=== PATIENT | female | born 1975 | race Caucasian/White ===

== ENCOUNTER 2019-11-20 06:34 | Inpatient (IN) | payer OTHER ==
[2019-11-15 15:40] VITALS: BMI 26.5
[2019-11-20] MEDS ORDERED: BUPIVACAINE LIPOSOME/PF (EXPAREL) 266 MG/20 ML VIAL ONE (07:47)
[2019-11-20] MEDS ORDERED: BUPIVACAINE HCL/PF 0.25% (2.5MG/ML) 10 ML VIAL ONE (07:48)
[2019-11-20] MEDS ORDERED: SODIUM CHLORIDE 0.9% P/F 10 ML VIAL IJ ONE (07:49)
[2019-11-20] MEDS ORDERED: LIDOCAINE HCL/PF 2% SDV 5ML VIAL ONE (07:50)
--- NOTE | 2019-11-20 07:53 | HP ---
History & Physical Update - History History: No Change (anemia secondary to acute blood loss form menorrhagia , fibroid uterus) - Physical Physical: No Change - Assessment Assessment: No Change - Plan Plan: No Change (H&P reviwed , no changes , for supracervical abdominal hysterectomy, bilateral salpingectomy.)
[2019-11-20] MEDS ORDERED: CEFAZOLIN 2 GM/D5W 2 GM/50 ML ML IVPB ONE (08:00)
[2019-11-20] MEDS ORDERED: MIDAZOLAM HCL 2 MG/2 ML SINGLE DOSE VIAL ONE ×2 (08:03)
[2019-11-20] MEDS ORDERED: ceFAZolin 2 GRAM PREMIX BAG IVPB ONE ×2 (08:15→09:05)
[2019-11-20] MEDS ORDERED: ROCURONIUM BROMIDE 50 MG/5 ML SYRINGE ONE (08:30)
[2019-11-20] MEDS ORDERED: PROPOFOL 20 ML ONE (08:30)
[2019-11-20] MEDS ORDERED: DEXAMETHASONE SOD PHOSPHATE 4 MG/1 ML VIAL ONE (08:30)
[2019-11-20] MEDS ORDERED: PROMETHAZINE HCL 25 MG/1 ML VIAL IVPB PRN (08:41)
[2019-11-20] MEDS ORDERED: ONDANSETRON 4 MG/2 ML VIAL IVPUSH PRN ×2 (08:41→11:08)
[2019-11-20] MEDS ORDERED: LACTATED RINGERS SOLUTION 1,000 ML IV SCH (08:45)
[2019-11-20] MEDS ORDERED: ACETAMINOPHEN INJECTION 100 ML IVPB ONE (08:46)
[2019-11-20] MEDS ORDERED: ceFAZolin SODIUM 1 GM VIAL ONE (09:15)
[2019-11-20] MEDS ORDERED: DESFLURANE GAS 240 ML BOTTLE IH ONE (09:22)
[2019-11-20] MEDS ORDERED: NEOSTIGMINE METHYLSULFATE 0.5 MG/ML - 10 ML MDV ONE (10:03)
[2019-11-20] MEDS ORDERED: GLYCOPYRROLATE 0.2 MG/1 ML VIAL ONE (10:06)
[2019-11-20] MEDS ORDERED: KETOROLAC TROMETHAMINE 30 MG/1 ML VIAL ONE (10:06)
[2019-11-20] MEDS ORDERED: BENZOIN/ALOE VERA/STORAX/TOLU 58 ML BOTTLE TP ONE (10:40)
[2019-11-20] MEDS ORDERED: BENZOIN/ALOE VERA/STORAX/TOLU 58 ML BOTTLE ONE (10:48)
[2019-11-20] MEDS: HYDROmorphone HCl 2 MG/ML VIAL IVPUSH PRN ×4 (11:00→11:35)
[2019-11-20] MEDS ORDERED: HYDROmorphone HCl 2 MG/ML VIAL ONE (11:01)
[2019-11-20] MEDS ORDERED: IBUPROFEN 600 MG TABLET (FP) PO PRN (11:08)
[2019-11-20] MEDS ORDERED: IBUPROFEN 800 MG/8 ML IJ IVPB PRN (11:08)
[2019-11-20] MEDS ORDERED: oxyCODONE HCL 5 MG TABLET PO PRN (11:08)
[2019-11-20] MEDS ORDERED: ELECTROLYTE-148 SOLN 1,000 ML IV SCH (11:15)
--- NOTE | 2019-11-20 11:16 | OP ---
Operative Note - Note: Operative Date: 11/20/19 Pre-Operative Diagnosis: menometrorrhagia, fibroid uterus, anemia Operation: supracervical abdominal hysterectomy , bilateral salpingectomy Findings: enlarged uterus, fibroid Surgeon: Regan Quiroz Slp: Nayeli Stephen Anesthesia: General Specimens Removed: uterus, both fallopian tubes Estimated Blood Loss (mls): 50 Drains & Tubes with Location: ham Drains, Volume Out (mls): 300 Blood Volume Replaced (mls): 0 Fluid Volume Replaced (mls): 1,500 Operative Report Dictated: Yes
[2019-11-20] MEDS ORDERED: HYDROmorphone *PCA* 10MG/50ML DISP.SYRIN PCA SCH (11:30)
[2019-11-20] MEDS ORDERED: HYDROmorphone *PCA* 10MG/50ML DISP.SYRIN ONE (11:35)
[2019-11-20] MEDS ORDERED: ACETAMINOPHEN 325 MG TABLET (FP) PO PRN (11:37)
[2019-11-20] MEDS: ACETAMINOPHEN 1000 MG/100 ML VIAL (NON FORMULARY) IVPB PRN ×2 (16:12→22:52)
[2019-11-20] MEDS: CEFAZOLIN 2 GM/D5W 2 GM/50 ML ML IVPB SCH (17:12)
[2019-11-21] MEDS: CEFAZOLIN 2 GM/D5W 2 GM/50 ML ML IVPB SCH (01:30)
[2019-11-21] MEDS ORDERED: BISACODYL 5 MG TABLET.DR (FP) PO ONE (07:17)
[2019-11-21] MEDS ORDERED: SIMETHICONE 80 MG TAB.CHEW (FP) PO PRN (07:17)
[2019-11-21 08:46] LABS: HEMATOCRIT 21.3 % (32.4-45.2); MCH 23.8 pg (25.7-33.7); MCHC 31.2 g/dl (32.0-36.0); MEAN CELL VOLUME 76.4 fl (80-96); PLATELET COUNT 323 K/MM3 (134-434); RBC 2.79 M/mm3 (3.60-5.2); RDW 21.4 % (11.6-15.6); WHITE BLOOD COUNT 11.3 K/mm3 (4.0-10.0)
[2019-11-21 08:53] LABS: HEMOGLOBIN 6.7 GM/dL (10.7-15.3)
[2019-11-21 09:00] LABS: BLOOD UREA NITROGEN 7.3 mg/dL (7-18); CALCIUM 8.2 mg/dL (8.5-10.1); CREATININE 0.7 mg/dL (0.55-1.3); POTASSIUM 4.1 mmol/L (3.5-5.1)
[2019-11-21] MEDS: ENOXAPARIN NA (PORCINE) 40 MG/0.4 ML DISP.SYRIN SQ SCH (09:03)
[2019-11-21] MEDS ORDERED: IRON SUCROSE INJECTION 200 MG in SODIUM CHLORIDE 90 ML IVPB ONE (09:31)
--- NOTE | 2019-11-21 09:38 | PN ---
Progress Note (short form) - Note Progress Note: pod1 s/psupracervical abdominal hysterectomy , anemia seconadry to acute blood loss from heavy menses c/o of mild incisional pain , no n/v , no dizziness , no vaginal bleeding, alert, oriented , comfortable Last Vital Signs Temp Pulse Resp BP Pulse Ox 98.6 F 79 18 118/75 97 11/21/19 08:26 11/21/19 08:26 11/21/19 08:26 11/21/19 08:26 11/20/19 21:00 CBC, BMP 11/21/19 06:37 11/21/19 06:37 abdomen soft, no distension, no rebound ot guarding , BS present incision dry ,clean no calf tenderness no vaginal discharge impression preop anemia , HB postop 6.7, asymptomatic, no dizziness or headache or chest pain , pulse and BP normal plan observation iron transfusion if become symptomatic may consider blood transfusion
[2019-11-21] MEDS ORDERED: PCA PUMP NR ONE (09:51)
[2019-11-21] MEDS: oxyCODONE HCL 5 MG TABLET PO PRN ×3 (09:55→23:01)
[2019-11-21] MEDS: ACETAMINOPHEN 1000 MG/100 ML VIAL (NON FORMULARY) IVPB PRN (09:57)
--- NOTE | 2019-11-21 12:47 | PN ---
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
[2019-11-21 16:52] LABS: BASO % 0.2 % (0-2.0); EOS % 0.3 % (0-4.5); LYMPH % 15.1 % (8-40); MCH 23.5 pg (25.7-33.7); MCHC 30.9 g/dl (32.0-36.0); MEAN CELL VOLUME 76.1 fl (80-96); MEAN PLT VOLUME 8.9 fl (7.5-11.1); MONO % 4.5 % (3.8-10.2); NEUT % 79.9 % (42.8-82.8); PLATELET COUNT 337 K/MM3 (134-434); RBC 2.93 M/mm3 (3.60-5.2); WHITE BLOOD COUNT 12.5 K/mm3 (4.0-10.0)
[2019-11-21 17:04] LABS: HEMATOCRIT 22.3 % (32.4-45.2); HEMOGLOBIN 6.9 GM/dL (10.7-15.3)
[2019-11-21 19:13] LABS: ANISOCYTOSIS 2+; MACROCYTOSIS 1+; OVALOCYTE 1+; PLATELET ESTIMATE NORMAL
--- NOTE | 2019-11-21 20:07 | OP ---
DATE OF OPERATION: 11/20/2019 PREOPERATIVE DIAGNOSIS: Menometrorrhagia, fibroid uterus, and anemia. POSTOPERATIVE DIAGNOSIS: Menometrorrhagia, fibroid uterus, and anemia. PROCEDURE: Supracervical abdominal hysterectomy and bilateral salpingectomy. SURGEON: Regan Quiroz MD. ANESTHESIA: General. ANESTHESIOLOGIST: Mesfin Ellis MD. ESTIMATED BLOOD LOSS: 50 mL. DESCRIPTION OF PROCEDURE: Patient was taken to operating room, where under adequate general anesthesia abdomen and perineum were draped. Pfannenstiel abdominal skin incision was made. Abdominal wall was cut layer by layer until peritoneum was exposed and incised. Upon entering abdominal cavity, after abdomen was checked for normal, bowels were packed away. Uterus was prominent with fundal fibroid and also a small right cornual fibroid, and the right ovary had a corpus luteum cyst on it, and the left was normal, no adhesions. Then both cornual regions of the uterus were grasped with a Wade and uterus was delivered. Then both identified and cauterized with bipolar cautery LigaSure and cut. Then anterior leaf of broad ligament was developed with Metzenbaum scissors and the bladder was dissected from the cervix meticulously with sharp and blunt dissection, and bladder was pushed down. Then right tube was grasped with a bipolar LigaSure cautery and cauterized along the mesosalpinx and removed, the same repeated for the opposite tube. Then uteroovarian ligament was grasped by making a hole in the broad ligament and the uteroovarian ligament was grasped with Jero clamp and severed from the uterus with Murillo scissors, and then the pedicles were tied with 2-0 then with 2-0 Vicryl ligatures suture. No bleeding was seen. Then bladder was further pushed down. Uterine artery was identified bilaterally, clamped with Jero clamp and cut, and the clamp replaced with 0 Vicryl suture bilaterally, then paracervical area was clamped with Jero clamp, cut, and the clamp replaced with 0 Vicryl suture bilaterally. At this time, the uterus was removed above the cervix with the cautery, and then the cervix was sutured with interrupted suture of 0 Vicryl, hemostasis established, and then pelvic area several times irrigated, no active bleeding was seen. Both ureters were palpated, were normal, and then preperitoneal incision of the pelvic floor was done with 2-0 Vicryl continuous suture, and all the lap, sponge, instrument counts were correct. Peritoneum was closed with 0 Vicryl continuous suture. Muscles were brought together interrupted suture of 0 Vicryl, fascia was closed with 0 Vicryl continuous suture, subcutaneous tissue with interrupted suture of 2-0 Vicryl, and the skin was closed with 3-0 Vicryl subcuticular continuous suture. Patient tolerated procedure well, left the OR in good condition. Urine was clear, 300 mL. Input was 1500 IV fluid. Soha [id number]
[2019-11-22 07:54] LABS: BASO % 0.3 % (0-2.0); EOS % 1.6 % (0-4.5); HEMATOCRIT 23.3 % (32.4-45.2); HEMOGLOBIN 7.1 GM/dL (10.7-15.3); LYMPH % 12.8 % (8-40); MCH 23.6 pg (25.7-33.7); MCHC 30.6 g/dl (32.0-36.0); MEAN CELL VOLUME 77.2 fl (80-96); MEAN PLT VOLUME 8.6 fl (7.5-11.1); MONO % 4.7 % (3.8-10.2); NEUT % 80.6 % (42.8-82.8); PLATELET COUNT 350 K/MM3 (134-434); RBC 3.03 M/mm3 (3.60-5.2); RDW 21.1 % (11.6-15.6); WHITE BLOOD COUNT 12.8 K/mm3 (4.0-10.0)
[2019-11-22 08:20] LABS: BLOOD UREA NITROGEN 9.5 mg/dL (7-18); CALCIUM 8.7 mg/dL (8.5-10.1); CREATININE 0.8 mg/dL (0.55-1.3); POTASSIUM 3.7 mmol/L (3.5-5.1)
[2019-11-22] MEDS: ENOXAPARIN NA (PORCINE) 40 MG/0.4 ML DISP.SYRIN SQ SCH (09:02)
[2019-11-22] MEDS: ONDANSETRON 4 MG/2 ML VIAL IVPB PRN ×2 (12:03→17:03)
[2019-11-22] MEDS ORDERED: BISACODYL 5 MG TABLET.DR (FP) PO ONE (14:42)
--- NOTE | 2019-11-22 14:47 | PN ---
Progress Note (short form) - Note Progress Note: pod 2 , anemia had n/v this morning received Zofran , feels better , no dizziness , no vaginal bleeding , passing gas pain has improved CBC, BMP 11/22/19 07:32 11/22/19 07:32 Last Vital Signs Temp Pulse Resp BP Pulse Ox 98.4 F 82 18 110/76 100 11/22/19 13:38 11/22/19 13:38 11/22/19 13:38 11/22/19 13:38 11/22/19 09:00 abdomen soft, no distension, no cva BS are present incision dry, clean no calf tenderness plan ambulate one more dose of iron transfusion if asymptomatic plan for d/c home in am
[2019-11-22] MEDS ORDERED: IRON SUCROSE INJECTION 300 MG in SODIUM CHLORIDE 235 ML IVPB ONE (15:30)
[2019-11-23 05:58] VITALS: BP 109/63; PULSE 81; TEMP 98.4
--- NOTE | 2019-11-23 06:59 | DS ---
Physical Exam-EVENTS ASSOCIATE Vital Signs: Vital Signs Temperature 98.4 F 11/23/19 05:57 Pulse Rate 81 11/23/19 05:57 Respiratory Rate 20 11/23/19 05:57 Blood Pressure 109/63 11/23/19 05:57 O2 Sat by Pulse Oximetry (%) 100 11/22/19 20:14 Constitutional: Yes: Well Nourished, No Distress, Calm Eyes: Yes: WNL, Conjunctiva Clear HENT: Yes: WNL Neck: Yes: WNL Cardiovascular: Yes: WNL, Regular Rate and Rhythm Respiratory: Yes: WNL, Regular, CTA Bilaterally Gastrointestinal: Yes: WNL ...Rectal Exam: Yes: WNL Renal/: Yes: WNL Breast(s): Yes: WNL Musculoskeletal: Yes: WNL Extremities: Yes: WNL Integumentary: Yes: WNL Wound/Incision: Yes: Clean/Dry, Well Approximated, Sutures Intact Neurological: Yes: WNL, Alert, Oriented ...Motor Strength: WNL Psychiatric: Yes: WNL, Alert, Oriented Labs: CBC, BMP 11/22/19 07:32 11/22/19 07:32 Discharge Summary Problems reviewed: Yes Reason For Visit: LEIOMYOMA OF UTERUS, UNSPECIFIED anemia Procedures: Principal: supracervical abdominal hysterectomy, bilateral salpingectomy Hospital Course: anemia , secondary to acute blood loss, recived iron transfusion Health Concerns: anemia Plan of Treatment: iron, vit , pain meds , follow up office 2 weeks Condition: Good - Instructions Diet, Activity, Other Instructions: regular diet, no heavy lifting , if fever, severe pain, heavy vaginal bleeding call md follow up office 2 weeks cont . iron and vitamins Referrals: Regan Quiroz MD [Staff Physician] - Disposition: HOME - Home Medications Comprehensive Discharge Medication List: Ambulatory Orders Calcium 500Mg/Vit-D 200 Units [Os-Nahum 500+D -] 1 combo PO DAILY 08/27/19 Iron,Carb/Vit C/Vit B12/Folic [Iron 100 Plus Tablet] 1 each PO BID 08/27/19 L.acidoph,Paracasei, B.lactis [Probiotic] 1 each PO DAILY 08/27/19 Ibuprofen [Motrin -] 600 mg PO TID #90 tablet 11/21/19 Oxycodone HCl/Acetaminophen [Oxycodon-Acetaminophen 7.5-325] 1 each PO TID PRN #20 tablet MDD 4 11/21/19
--- NOTE | 2019-11-26 16:14 | PATH ---
Surgical Pathology Report Patient Name: KINJAL SAMAYOA [facility]. Rec. #: [id number] /Age/Gender: 1975 (Age: 44) / F Account: [id number] Location: [address] [place] [address] Taken: 11/20/2019 Received: 11/20/2019 Reported: 11/26/2019 Physicians: Regan Quiroz M.D. Specimen(s) Received A: LEFT FALLOPIAN TUBE B: RIGHT FALLOPIAN TUBE C: UTERUS Clinical History Leiomyoma of uterus unspecified Final Diagnosis A. LEFT FALLOPIAN TUBE, SALPINGECTOMY: PORTION OF FALLOPIAN TUBE WITH NO SIGNIFICANT PATHOLOGIC CHANGE. B. RIGHT FALLOPIAN TUBE, SALPINGECTOMY: PORTION OF FALLOPIAN TUBE WITH ENDOSALPINGIOSIS. C. 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 SEPARATE MULTIPLE LEIOMYOMAS. ADENOMYOSIS. SECRETORY TYPE ENDOMETRIUM. PORTION OF CERVICAL TISSUE, NEGATIVE FOR DYSPLASIA. SURGICAL MARGINS ARE NEGATIVE FOR SMOOTH MUSCLE TUMOR OF UNCERTAIN MALIGNANT POTENTIAL (STUMP). Comment: The largest tumor shows diffuse mild to moderate atypia; mitotic count 3~4/10 HPF; no definite coagulative tumor cell necrosis is identified. 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 Clinical correlation and followup are recommended. Intradepartmental case reviewed with concordance diagnosis, 11/26/2019. Electronically Signed Geovanna Contreras M.D. Addendum Reported: 11/27/2019 Addendum Diagnosis This case was discussed with Dr. Quiroz on 11/27/2019. Geovanna Contreras M.D. Gross Description A. Received in formalin labeled "left fallopian tube," is a 4.5 cm in length fimbriated fallopian tube. The outer surface is day tate and smooth. Sectioning reveals an unremarkable lumen. Banquet Server sections are submitted in 2 cassettes as follows: 1-fimbria; 2-cross sections of fallopian tube. B. Received in formalin labeled "right fallopian tube," is a 3.5 cm in length fimbriated fallopian tube. The outer surface is williamson purple and smooth. Sectioning reveals unremarkable lumen. Banquet Server sections are submitted in 2 cassettes as follows: 1-fimbria; 2-cross sections of fallopian tube. C. Received in formalin labeled "uterus," is a 257 g supracervically amputated uterus with no attached adnexa. The specimen measures 9.5 cm from superior to inferior, 7 cm from left to right and 7 cm from anterior to posterior. The serosa is day-williamson with focal bulging subserosal nodules. The endometrial cavity measures 6 cm in length and 3.5 cm from cornu to cornu. The endometrium is day red and measures up to 0.4 cm in thickness. The myometrium displays multiple intramural nodules (8), the largest measures 4.8 cm in greatest dimension. The largest nodule displays central hemorrhage and degeneration. The remaining nodules are day and rubbery with whorled architecture. Banquet Server sections are submitted in 11 cassettes as follows: 1-cervical stump margin of resection; 4-5-kgjupiyk endomyometrium; 3-4-ramdpqvyu endomyometrium; 6-subserosal nodules; 7-9-largest intramural nodule; 23-37-rsivumwjbz intramural nodules. 12-14- additional sections of largest intramural nodule 11/21/2019 [facility]11/21/2019
== END 2019-11-23 09:06 | disposition home or self-care (01) | DRG 742 ==
LOC: J2C 06:34 → J6S 13:57
PROVIDERS: ADMIT Obstetrics & Gynecology; ATTEND Obstetrics & Gynecology
PROC: 0UT70ZZ Resection of Bilateral Fallopian Tubes, Open Approach (ICD-10-PCS; 2019-11-20)
PROC: 0UT90ZL Resection of Uterus, Supracervical, Open Approach (ICD-10-PCS; principal; 2019-11-20 08:30)
DX: N92.1 Excessive and frequent menstruation with irregular cycle (principal); D62 Acute posthemorrhagic anemia; D25.9 Leiomyoma of uterus, unspecified
CPT/HCPCS: 36415; 80048; 81025; 85025; 85027; 86850; 86900; 86901; 88302-TC; 88309-TC; 94760; J0131; J1756